=== PATIENT | male | born 1990 | race Caucasian/White ===

== ENCOUNTER 2017-03-08 06:08 | Day surgery (SDC) | payer OTHER ==
[2017-03-08 06:56] VITALS: BP 108/72; BMI 22.0
[2017-03-08 07:27] LABS: HEMATOCRIT 40.7 % (42.0-54.0); HEMOGLOBIN 13.9 g/dL (13.5-17.5); MCH 30.5 pg (26.0-34.0); MCHC 34.2 g/dL (31.0-37.0); MCV 89.3 fL (80.0-100.0); MEAN PLATELET VOLUME 9.4 fL (7.4-10.4); RBC 4.56 10x6/uL (4.20-6.10); RDW 12.2 % (11.5-14.5); WBC 4.8 10x3/uL (4.8-10.8)
--- NOTE | 2017-03-08 08:58 | NUR ---
PROCEEDURE ON TRANSPORT CART
--- NOTE | 2017-03-08 09:10 | NUR ---
GROUNDING PADS ON MELQUIADES THIGHS PER JOSE F L/N [id number] EXP 12/28/18 L/N [id number] EXP 11/16/18
--- NOTE | 2017-03-08 10:00 | NUR ---
TRAY PROVIDED WITH ICE WATER.
--- NOTE | 2017-03-08 10:30 | NUR ---
PT SIPPING ON WATER. MOM STATES PT HAS BEEN DOZING. PT STATES HE DOESN'T HAVE MUCH OF AN APPETITE.
--- NOTE | 2017-03-08 11:13 | HP ---
PATIENT: CAMACHO GRULLON MEDICAL RECORD: [id number] ACCOUNT: [id number] LOCATION:[facility] : 89 ADMISSION DATE: 03/08/17 HISTORY AND PHYSICAL EXAMINATION ADDENDUM The patient has a history and physical examination on the chart. The patient had had a 10-pound weight loss over 2 weeks, which led to the colonoscopy. He was found to have a serrated adenoma of the ascending colon. This was tattooed. The patient was referred by Dr. Sanchez. His primary care physician is Dr. Diamond. TRANSINT:[id number] Voice Confirmation ID: [id number] DOCUMENT ID: [id number] JASMYN EDGE MD at 1113 CC: [id number] DICTATION DATE: 03/08/1745 ESTATE PLANNING COUNSELOR: 03/08/[address] [facility] [address] [id number]
--- NOTE | 2017-03-08 11:45 | NUR ---
PIV DC W/CATHETER TIP INTACT DC TEACHING COMPLETE PT VU.
--- NOTE | 2017-03-08 12:15 | NUR ---
PT DC HOME OUT VIA WC WITH MOM.
--- NOTE | 2017-03-11 16:05 | OP ---
PATIENT NAME: CAMACHO GRULLON MEDICAL RECORD: [id number] :89 LOCATION:D.OPS ADMISSION DATE: SURGEON: JASMYN EDGE MD DATE OF OPERATION: 03/08/2017 PREOPERATIVE DIAGNOSIS: History of a serrated adenoma of the ascending colon, which was tattooed. POSTOPERATIVE DIAGNOSES: History of a serrated adenoma of the ascending colon, which was tattooed with a questionable polyp involving the superior lip of the ileocecal valve. PROCEDURES: 1. Total colonoscopy to cecum. 2. Hot biopsy forceps polypectomy times 1. 3. Polypectomy and then ablation of the remaining polyp with the argon plasma ecommerce analyst. SURGEON: Jasmyn Edge MD BEAN SNIPPER: None. BLOOD LOSS: Minimal. ANESTHESIA: General. COMPLICATIONS: None. The risks, possible complications, and alternatives to the procedure were explained to the patient. He elects to proceed. OPERATIVE COURSE: The patient was conveyed to the operating room electively on 03/08/2017. General anesthesia was induced by the anesthesia staff. The patient was placed in the Guzman position. A digital rectal examination was performed. The colonoscope was inserted through the anus. It was easily advanced to the cecum. The prep was adequate. I slowly withdrew the endoscope. I noted some irregularity to the superior lip of the ileocecal valve. I performed a hot biopsy forceps polypectomy at this site. I then continued to withdraw the endoscope. I identified the tattoo, which was easily identifiable. The adenomatous polyp was at 12 o'clock whereas the tattoo was at 3 o'clock. Multiple cold endoscopic biopsies were performed and then I ablated the remaining polyp with the argon plasma ecommerce analyst utilizing the right colon setting in the forced mode. I then continued to withdraw the endoscope. A retroflexed view was obtained in the rectum. I then unretroflexed the scope and removed it under direct vision. The pullback was greater than a 19-minute pullback. I will see the patient in my office in 2-3 weeks. We will review the results of the biopsies. I will plan for his next colonoscopy with the argon plasma ecommerce analyst to take place in 1 year. TRANSINT:[id number] Voice Confirmation ID: [id number] DOCUMENT ID: [id number] OPERATIVE REPORT [id number] YADICAMACHO DECLAN JASMYN EDGE MD at 1605 CC: SIMI TA and CHRISTOPH ELI DO [id number] DICTATION DATE: 03/08/17 0948 TELEGRAPHIC TYPEWRITER INSTALLER: 03/08/17 1254 [facility] 03/08/17 [address] [place] [address]
== END 2017-03-08 12:15 | disposition home or self-care (01) ==
LOC: D.OPS 06:08 → D.PAN 08:00 → D.OPS 09:15 → D.PAN 09:15 → D.OPS 12:15
PROVIDERS: Anesthesiology
DX: K63.5 Polyp of colon (principal); Z01.812 Encounter for preprocedural laboratory examination

== ENCOUNTER 2018-04-01 05:35 | Day surgery (SDC) | payer OTHER ==
[~2018-04-01] VITALS: Ht 185.4 cm; Wt 79.4 kg
--- NOTE | ~2018-04-01 | OP ---
PATIENT NAME: CAMACHO GRULLON MEDICAL RECORD: [id number] :89 LOCATION:D.OPS ADMISSION DATE: SURGEON: JASMYN EDGE MD DATE OF OPERATION: 04/01/2018 PREOPERATIVE DIAGNOSIS: History of complex colon polyp of the ascending colon, which was a serrated adenoma, which has been tattooed. POSTOPERATIVE DIAGNOSES: History of complex colon polyp of the ascending colon, which was a serrated adenoma, which has been tattooed, with no evidence of recurrence of the polyp. PROCEDURES: 1. Total colonoscopy to cecum. 2. Cold endoscopic biopsies of the scar to rule out any occult polypoid tissue that may remain. Then, ablation of the scar with the argon plasma manager home improvement, utilizing the right colon setting in the forced mode. There was some bleeding and this was controlled with endoscopic clips times 5. SURGEON: Jasmyn Edge MD SPOT MAN: None. BLOOD LOSS: Minimal. ANESTHESIA: General. COMPLICATIONS: None. The risks, possible complications, and alternatives to procedure were explained to the patient. He elects to proceed. The discussion specifically included, but was not limited to, bleeding requiring an emergency reoperation, infection, endoscopic perforation as well as possible need for an intestinal resection. ENDOSCOPIC COURSE: The patient was conveyed to the endoscopy suite electively on 04/01/2018. General anesthesia was induced by the anesthesia staff. The patient was placed in the Guzman position. A digital rectal examination was performed. A colonoscope was inserted through the anus. It was easily advanced to the cecum. Upon withdrawal, I irrigated and aspirated extensively. The scar was easily identified. Utilizing normal imaging as well as narrow band imaging, I examined the area around the scar. Cold endoscopic biopsies of the scar were performed. I then ablated this tissue with the argon plasma manager home improvement utilizing the right colon setting in the forced mode. There was some bleeding, which was controlled with a row of 5 metallic endoscopic clips. I then continued to withdraw the endoscope. The pullback was greater than a 19-minute pullback. A retroflexed view was obtained in the rectum. I then unretroflexed the scope and removed it under direct vision. I plan to see the patient in my office in 2-3 weeks. If there has been no regrowth of the serrated adenoma, I will plan to return the patient's surveillance endoscopic care back over to Dr. Sanchez. TRANSINT:[id number] Voice Confirmation ID: [id number] DOCUMENT ID: [id number] OPERATIVE REPORT [id number] CAMACHO GRULLON ROBERT MD at 1355 CC: SIMI TA and CHRISTOPH SANCHEZ DO [id number] DICTATION DATE: 04/01/18 1110 NURSING PROGRAM MANAGER: 04/01/18 1240 [facility] [place] 04/01/[address] [id number]
[2018-04-01 07:31] VITALS: BP 109/70; Ht 185.4 cm; Wt 79.4 kg
== END 2018-04-01 13:47 | disposition home or self-care (01) ==
LOC: D.OPS 05:35 → D.PAN 10:50 → D.OPS 13:35
DX: Z86.010 Personal history of colon polyps (principal); Z01.812 Encounter for preprocedural laboratory examination